=== PATIENT | female | born 1945 | race Caucasian/White ===

== ENCOUNTER 2020-10-29 14:09 | Emergency (ER) | payer MEDICARE, MEDICAID ==
--- NOTE | 2020-10-29 15:35 | EDM.PDOC ---
ED HPI GENERAL MEDICAL PROBLEM - General Chief Complaint: General Stated Complaint: SHAKING,WEAK Time Seen by Provider: 10/29/20 15:10 Source of Information: Reports: Patient, Family, Old Records, RN History Limitations: Reports: No Limitations - History of Present Illness INITIAL COMMENTS - FREE TEXT/NARRATIVE: 74 yo female smoker with a pHx a TIA and who is a current tobacco user presents with family about a 15 min spell of weakness and shakiness that occurred just as she was finishing lunch today about 1330h. Has not eaten anything for breakfast today, normally does eat breakfast. Is not diabetic. By the time she arrived at the hospital all her sx's were gone. Feels her normal self now. Has not been ill lately. Onset: Today, Sudden Onset Date: 10/29/20 Onset Time: 13:30 Duration: Minutes: (15), Resolved Prior to Arrival Location: Reports: Generalized Quality: Reports: Other (no pain) Severity: Moderate Improves with: Reports: Other (time/? eating) Worsens with: Reports: Other (? not eating) Context: Reports: Other (See HPI) Associated Symptoms: Reports: Weakness (generalized), Other (shakey) Treatments MANAGER SHIPPING: Reports: Other (see below) (none) - Related Data Allergies Allergy/AdvReac Type Severity Reaction Status Date / Time No Known Allergies Allergy Verified 10/29/20 14:34 ED ROS GENERAL - Review of Systems Review Of Systems: See Below Constitutional: Reports: Weakness. Denies: Fever, Night Sweats, Diaphoresis HEENT: Reports: No Symptoms Respiratory: Reports: No Symptoms Cardiovascular: Reports: No Symptoms GI/Abdominal: Reports: No Symptoms : Reports: No Symptoms Musculoskeletal: Reports: No Symptoms Skin: Reports: No Symptoms Neurological: Reports: Tremors (shakey) Psychiatric: Reports: No Symptoms ED EXAM, GENERAL - Physical Exam Exam: See Below Exam Limited By: No Limitations General Appearance: Alert, WD/WN, No Apparent Distress Eye Exam: Bilateral Eye: Normal Inspection Ears: Normal External Exam, Normal Canal, Hearing Grossly Normal, Normal TMs Ear Exam: Bilateral Ear: Auricle Normal, Canal Normal, TM normal Nose: Normal Inspection, No Blood Throat/Mouth: Normal Inspection, Normal Lips, Normal Oropharynx, Normal Voice, No Airway Compromise Head: Atraumatic, Normocephalic Neck: Normal Inspection Respiratory/Chest: No Respiratory Distress, Lungs Clear, Normal Breath Sounds, No Accessory Muscle Use Cardiovascular: Regular Rate, Rhythm, No Edema GI/Abdominal: Soft, Non-Tender, No Distention Back Exam: Normal Inspection. No: CVA Tenderness (R), CVA Tenderness (L) Extremities: Normal Inspection, Normal Range of Motion, Non-Tender, No Pedal Edema. No: Pedal Edema Neurological: Alert, Oriented, CN II-XII Intact, Normal Cognition, No Motor/Sensory Deficits Psychiatric: Normal Affect, Normal Mood Skin Exam: Warm, Dry, Intact, Normal Color, No Rash Course - Vital Signs Last Recorded V/S: Last Vital Signs Temp 37.3 C 10/29/20 14:10 Pulse 87 10/29/20 14:10 Resp 18 10/29/20 14:10 BP 108/72 10/29/20 14:10 Pulse Ox 94 L 10/29/20 14:10 - Orders/Labs/Meds Orders: Active Orders 24 hr Category Date Time Status CORONAVIRUS (COVID19) [facility] Routine Lab 10/29/20 15:05 Received - Re-Assessments/Exams Free Text/Narrative Re-Assessment/Exam: 10/29/20 15:36 walked independently in the ER without tremors. Departure - Departure Time of Disposition: 15:36 Disposition: Home, Self-Care 01 Condition: Good Clinical Impression: Shakiness - Discharge Information *PRESCRIPTION DRUG MONITORING PROGRAM REVIEWED*: Not Applicable *COPY OF PRESCRIPTION DRUG MONITORING REPORT IN PATIENT HEENA: Not Applicable Referrals: PCP,Not In Area [Primary Care Provider] - Additional Instructions: Avoid prolonged episodes of fasting. Recheck as needed. Someone will notify you of the Covid test result. Sepsis Event Note (ED) - Evaluation Sepsis Screening Result: No Definite Risk - Focused Exam Vital Signs: Vital Signs Temp Pulse Resp BP Pulse Ox 10/29/20 14:10 37.3 C 87 18 108/72 94 L - My Orders Last 24 Hours: My Active Orders 10/29/20 15:05 CORONAVIRUS (COVID19) [facility] Routine - Assessment/Plan Last 24 Hours: My Active Orders 10/29/20 15:05 CORONAVIRUS (COVID19) [facility] Routine
[2020-10-31 19:58] LABS: CORNONAVIRUS (COVID19) CSH-NRL Negative (Negative)
== END 2020-10-29 15:43 | disposition home or self-care (01) ==
LOC: FB.ED 14:09
DX: R25.1 Tremor, unspecified (principal); F17.200 Nicotine dependence, unspecified, uncomplicated; Z86.73 Personal history of transient ischemic attack (TIA), and cerebral infarction without residual deficits; Z20.822 Contact with and (suspected) exposure to COVID-19
CPT/HCPCS: 99284; U0003